=== PATIENT | female | born 1955 | race Caucasian/White ===

== ENCOUNTER → 2017-02-25 | Day surgery (SDC) | payer MEDICAID ==
[~2017-02-25] MED LIST: Lactated Ringers 1,000 ML IV SCH; Ondansetron 4 MG/2 ML SDV IV ONE; Propofol 200 MG/20 ML SDV IV ONE
[2017-02-25 12:00] VITALS: BP 171/92
--- NOTE | 2017-02-28 08:13 | OR ---
DATE OF OPERATION: 02/25/2017 PREOPERATIVE DIAGNOSIS: HEMATOCHEZIA. POSTOPERATIVE DIAGNOSIS: HEMATOCHEZIA. SURGEON: Juan Daniel Agarwal MD PROCEDURE: FULL-LENGTH COLONOSCOPY WITH POLYP REMOVAL X4, ANAL BIOPSY X2. 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 COMPLICATIONS: None. SPECIMEN: 1. Tubular adenoma x3. 2. Hyperplastic polyp x1. 3. Anal polyp biopsy x2. FINDINGS: 1. Full-length colonoscopy. 2. Tubular adenoma x3. 3. Small hyperplastic polyp. 4. [id number] sigmoid diverticulosis. 5. Perianal polypoid tissue, recurrent. RECOMMENDATIONS: The patient should have a routine follow up colonoscopy in 3 years. We will send her to Dr. Jimenez for definitive treatment of this rectal mass. INDICATIONS: One year ago, the patient had a palpable anal mass that was looked to be solid tissue. She had surgical removal by Dr. Farfan and was doing fine over the last year. This past month, she started having ongoing issues with blood with her stools. On exam, he could feel this soft tissue mass inside the anus. Dr. Farfan recommended a followup colonoscopy. DESCRIPTION OF PROCEDURE: The patient was prepped and draped, placed in the left lateral decubitus position. A lubricated Olympus colonoscope was inserted and easily advanced to the cecum. Direct visualization of the ileocecal valve was accomplished. Bowel prep was excellent. Upon withdrawal of the scope in the mid ascending colon, the patient had 2 stalk tubular adenoma. It was easily removed with a snare and suctioned into polyp trap #1 without complication. The rest of the ascending and transverse colon appeared benign. Descending area was unremarkable. In the sigmoid, the patient had a few scattered diverticula, but very minimal in severity. No associated inflammatory change. There were no signs of any vascular abnormalities, bleeding sites, or colitis. There was one small flat hyperplastic appearing polyp in the distal sigmoid which was removed with a cold forceps biopsy x2 in its entirety. In the rectosigmoid junction, the patient had a fourth polyp. Again, a tubular adenoma less than 0.5 cm removed with a snare and suctioned into polyp trap #2 without complication. The rectal vault itself appeared benign. On retroflexion, the patient again has a lot of perianal hemorrhoidal tissue. She has again what appears to be a polypoid soft tissue mass in this area. We were able to biopsy x2. There was significant bleeding from the site which resolved on its own. Air was then suctioned. Scope was removed without complication. KEVIN/TEODORO /[id number]
== END ==
LOC: CC.SDS 09:31
PROVIDERS: ATTEND Family Medicine
DX: D12.2 Benign neoplasm of ascending colon (principal); D12.5 Benign neoplasm of sigmoid colon; D12.7 Benign neoplasm of rectosigmoid junction; K62.1 Rectal polyp; K57.30 Diverticulosis of large intestine without perforation or abscess without bleeding; J44.9 Chronic obstructive pulmonary disease, unspecified; E78.5 Hyperlipidemia, unspecified; E04.1 Nontoxic single thyroid nodule; E55.9 Vitamin D deficiency, unspecified; Z79.899 Other long term (current) drug therapy; Z88.1 Allergy status to other antibiotic agents; Z98.890 Other specified postprocedural states; Z87.891 Personal history of nicotine dependence
CPT/HCPCS: 45380; 45385; J2405; J2704; J7120

== ENCOUNTER 2018-02-12 08:46 | Emergency (ER) | payer MEDICAID ==
[2018-02-12] MEDS ORDERED: traMADol 50 MG Tab PO ONE (08:47)
[2018-02-12 09:13] VITALS: BP 141/92
[2018-02-12] MEDS ORDERED: Take Home: traMADol 50 MG, 4 Tab Pack PO ONE (09:44)
--- NOTE | 2018-02-12 09:44 | EDM.PDOC ---
ED HPI GENERAL MEDICAL PROBLEM - General Chief Complaint: Back Pain or Injury Stated Complaint: "HAVING RIGHT LOWER BACK PAIN" Time Seen by Provider: 02/12/18 09:30 - History of Present Illness INITIAL COMMENTS - FREE TEXT/NARRATIVE: Isabel is a 62 year old female who presents to the ED with c/o right sided low back pain with intermittent radiation to her right thigh. She reports that her low back was bothering her yesterday, but upon awakening this morning her pain was so bad she "could hardly walk." She reports she did put some BIofreeze on the affected area and that has helped quite a bit. She has not taken anything this morning for the pain. Has not tried ice/heat. Does report she is on Tramadol for her chronic pain. Does admit she has been taking 2 instead of 1 as prescribed, so she only has 2 pills left. She reports she is due for a refill on the of this month. 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 She otherwise denies any injuries to affected area. At present she denies any numbness/tingling. No loss of bowel or bladder. She has no other complaints. 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) (Biofreeze) buttock Pain Score (Numeric/FACES): 9 - Related Data Allergies Allergy/AdvReac Type Severity Reaction Status Date / Time azithromycin [From Zithromax] Allergy Rash Verified 02/12/18 09:23 Home Meds: Home Meds ALPRAZolam [Xanax] 1 mg PO TID PRN 07/26/13 [History] Albuterol [Ventolin HFA] 2 puff INH Q4H PRN 07/26/13 [History] Budesonide/Formoterol [Symbicort 160-4.5 MCG] 2 puff IH BID 07/26/13 [History] Ipratropium/Albuterol Sulfate [Duoneb 0.5 MG-3 MG/3 ML] 3 ml INH QID PRN [History] Montelukast [Singulair] 10 mg PO DAILY 07/26/13 [History] Fluticasone Propionate [Flonase] 1 spray NASBOTH DAILY 10/28/13 [History] Roflumilast [Daliresp] 500 mcg PO DAILY #30 tablet 12/01/13 [Rx] Ibuprofen 200 mg PO Q4H PRN 10/06/15 [History] traMADol HCl [Tramadol HCl] 50 mg PO TID PRN 02/23/17 [History] Past Medical History Respiratory History: Reports: Asthma, COPD Musculoskeletal History: Reports: Osteoporosis - Past Surgical History Other Musculoskeletal Surgeries/Procedures:: surgery on left foot Social & Family History - Tobacco Use Second Hand Smoke Exposure: No - Living Situation & Occupation Living situation: Reports: , Other Occupation: Employed ED ROS GENERAL - Review of Systems Review Of Systems: ROS reveals no pertinent complaints other than HPI. ED EXAM,LOWER BACK PAIN/INJURY - Physical Exam Exam: See Below Exam Limited By: No Limitations General Appearance: Alert, WD/WN, No Apparent Distress Back Exam: Full Range of Motion, Other (tenderness to right SI joint) Neurological: Alert, Normal Mood/Affect, Normal Dorsiflexion, CN II-XII Intact, Normal Plantar Flexion, Normal Gait (limp on R), Normal Reflexes, No Motor/ Sensory Deficits, Oriented x 3. No: Straight Leg Raise (L), Straight Leg Raise (R) Psychiatric: Normal Affect, Normal Mood Course - Vital Signs Last Recorded V/S: Last Vital Signs Temp 97.8 F 02/12/18 09:12 Pulse 82 02/12/18 09:12 Resp 20 02/12/18 09:12 BP 141/92 H 02/12/18 09:12 Pulse Ox 99 02/12/18 09:12 - Orders/Labs/Meds Orders: Active Orders 24 hr Category Date Time Status Lumbar Spine 2 or 3V [CR] Stat Exams 02/12/18 09:08 Taken Pelvis 1V or 2V [CR] Stat Exams 02/12/18 09:08 Taken Labs: Laboratory Tests 02/12/18 Range/Units 09:11 Urine Color Yellow (YELLOW) Urine Appearance Clear (CLEAR) Urine pH 5.0 (4.5-8.0) Ur Specific Odonnell >= 1.030 H (1.003-1.020) Urine Protein Negative (NEGATIVE) mg/dL Urine Glucose (UA) Negative (NEGATIVE) mg/dL Urine Ketones Negative (NEGATIVE) mg/dL Urine Occult Blood Moderate H (NEGATIVE) Urine Nitrite Negative (NEGATIVE) Urine Bilirubin Negative (NEGATIVE) Urine Urobilinogen 0.2 (0.2-1.0) EU/dL Ur Leukocyte Esterase Negative (NEGATIVE) Urine RBC 5-10 H (0-5) /HPF Urine WBC 0-5 (0-5) /HPF Ur Squamous Epith Cells Occasional H (NOT SEEN) /HPF Urine Bacteria Rare (NOT SEEN) /HPF Urine Mucus Occasional H (NOT SEEN) /HPF Meds: Medications Discontinued Medications Generic Name Dose Route Start Last Admin Trade Name Freq PRN Reason Stop Dose Admin Tramadol HCl 1 packet 02/12/18 09:44 Take Home: Tramadol 50 Mg, 4 Tab Pack PO 02/12/18 09:45 ONETIME ONE - Re-Assessments/Exams Free Text/Narrative Re-Assessment/Exam: Reviewed Xray with patient. No fracture or dislocation. Degenerative changes of hip joints bilaterally, moderate marginal sclerosis. Moderate artherosclerosis abdominal aorta and pelvic arteries. Mild degenerative spondylosis of multiple levels. Departure - Departure Time of Disposition: 09:44 Disposition: Home, Self-Care 01 Condition: Good Clinical Impression: Sacroiliitis, Spondylosis of lumbar spine, Atherosclerosis of abdominal aorta Low back pain Qualifiers: Chronicity: acute Back pain laterality: right Sciatica presence: with sciatica Sciatica laterality: sciatica of right side Qualified Code(s): M54.41 - Lumbago with sciatica, right side Osteoarthritis, hip, bilateral Qualifiers: Osteoarthritis type: unspecified Qualified Code(s): M16.0 - Bilateral primary osteoarthritis of hip - Discharge Information *PRESCRIPTION DRUG MONITORING PROGRAM REVIEWED*: Not Applicable *COPY OF PRESCRIPTION DRUG MONITORING REPORT IN PATIENT MAGY: Not Applicable Instructions: Sacroiliac Joint Dysfunction, Back Pain, Adult, [id number] Referrals: Juan Daniel Agarwal MD [Primary Care Provider] - Forms: ED Department Discharge Additional Instructions: Tramadol as previously prescribed by PCP. Will give patient #4 take home tabs. Tylenol 650 mg and ibuprofen 800 mg every 6 hours for the next few days Ice/heat to affected area as needed for comfort Biofreeze as needed Follow up with PCP for recheck of microscopic hematuria Follow up with PCP if symptoms worsen or do not improve - My Orders Last 24 Hours: My Active Orders 02/12/18 09:08 Lumbar Spine 2 or 3V [CR] Stat Pelvis 1V or 2V [CR] Stat - Assessment/Plan Last 24 Hours: My Active Orders 02/12/18 09:08 Lumbar Spine 2 or 3V [CR] Stat Pelvis 1V or 2V [CR] Stat
== END 2018-02-12 09:55 | disposition home or self-care (01) ==
LOC: CC.ED 08:46
DX: M16.0 Bilateral primary osteoarthritis of hip (principal); M47.816 Spondylosis without myelopathy or radiculopathy, lumbar region; M54.41 Lumbago with sciatica, right side; M46.1 Sacroiliitis, not elsewhere classified; I70.0 Atherosclerosis of aorta; J44.9 Chronic obstructive pulmonary disease, unspecified; Z88.1 Allergy status to other antibiotic agents; Z79.899 Other long term (current) drug therapy
CPT/HCPCS: 72100; 72170; 81001; 99283; A9270

== ENCOUNTER 2019-05-04 09:48 | Emergency (ER) | payer OTHER, MEDICAID ==
[2019-05-04 09:55] VITALS: BP 150/94; PULSE 89
[2019-05-04] MEDS: Diphtheria,Pertussis(Acell),Tetanus Vaccine 0.5 ML Syringe IM ONE (10:06)
--- NOTE | 2019-05-04 10:56 | EDM.PDOC ---
ED HPI GENERAL MEDICAL PROBLEM - General Chief Complaint: Laceration Stated Complaint: CUT HAND AT WORK Time Seen by Provider: 05/04/19 10:08 Source of Information: Reports: Patient History Limitations: Reports: No Limitations - History of Present Illness INITIAL COMMENTS - FREE TEXT/NARRATIVE: Isabel is a 63 yo female who presents to the ED via private vehicle with concerns of a cut to her left hand/wrist. 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 States it was bleeding and has been holding pressure. Able to move all fingers and unsure how deep it is. Tdap status unknown. l wrist lac Pain Score (Numeric/FACES): 8 - Related Data Allergies Allergy/AdvReac Type Severity Reaction Status Date / Time azithromycin [From Zithromax] Allergy Rash Verified 05/04/19 09:55 Home Meds: Home Meds ALPRAZolam [Xanax] 1 mg PO TID PRN 07/26/13 [History] Albuterol [Ventolin HFA] 2 puff INH Q4H PRN 07/26/13 [History] Budesonide/Formoterol [Symbicort 160-4.5 MCG] 2 puff IH BID 07/26/13 [History] Ipratropium/Albuterol Sulfate [Duoneb 0.5 MG-3 MG/3 ML] 3 ml INH QID PRN [History] Montelukast [Singulair] 10 mg PO DAILY 07/26/13 [History] Fluticasone Propionate [Flonase] 1 spray NASBOTH DAILY 10/28/13 [History] Ibuprofen 200 mg PO Q4H PRN 10/06/15 [History] traMADol HCl [Tramadol HCl] 50 mg PO TID PRN 02/23/17 [History] Past Medical History Respiratory History: Reports: Asthma, COPD Musculoskeletal History: Reports: Osteoporosis - Past Surgical History Other Musculoskeletal Surgeries/Procedures:: surgery on left foot Social & Family History - Family History Family Medical History: Noncontributory - Tobacco Use Smoking Status *Q: Never Smoker Second Hand Smoke Exposure: No - Caffeine Use Caffeine Use: Reports: None - Recreational Drug Use Recreational Drug Use: No - Living Situation & Occupation Living situation: Reports: , Other Occupation: Employed ED ROS GENERAL - Review of Systems Review Of Systems: Comprehensive ROS is negative, except as noted in HPI. ED EXAM, SKIN/RASH Exam: See Below Exam Limited By: No Limitations General Appearance: Alert, No Apparent Distress, Anxious Extremities: Normal Range of Motion, Other (strength and ROM appropriate in wrist down to distal digits. No tendon involvement. ) Neurological: No Motor/Sensory Deficits Psychiatric: Normal Affect, Anxious Skin: Warm, Normal Color, Other (very mild bleeding noted. 5cm superficial, clean laceration to left hand/wrist. ) ED SKIN PROCEDURES - Laceration/Wound Repair Left Anterior Hand Appearance: Superficial, Linear, Clean Distal NVT: Neuro & Vascular Intact, No Tendon Injury Skin Prep: Chlorhexidine (Hibiciens) Exploration/Debridement/Repair: Wound Explored, In a Bloodless Field, Explored to Base Closed with: Dermabond Lac/Wound length In cm: 5 Sterile Dressing Applied: Nurse Tetanus Status Addressed: Yes Complications: No Course - Vital Signs Last Recorded V/S: Last Vital Signs Temp 96.9 F 05/04/19 09:52 Pulse 89 05/04/19 09:52 Resp 14 05/04/19 09:52 BP 150/94 H 05/04/19 09:52 Pulse Ox 98 05/04/19 09:52 - Orders/Labs/Meds Orders: Active Orders 24 hr Category Date Time Status Vaccines to be Administered [RC] PER UNIT ROUTINE Care 05/04/19 09:57 Active Meds: Medications Discontinued Medications Generic Name Dose Route Start Last Admin Trade Name Freq PRN Reason Stop Dose Admin Diphtheria/Tetanus/Acell Pertussis 0.5 ml 05/04/19 09:57 05/04/19 10:06 Adacel IM 05/04/19 09:58 0.5 ml .ONCE ONE Administration Departure - Departure Time of Disposition: 10:55 Disposition: Home, Self-Care 01 Clinical Impression: Laceration of hand Qualifiers: Encounter type: initial encounter Foreign body presence: without foreign body Laterality: left Qualified Code(s): S61.412A - Laceration without foreign body of left hand, initial encounter - Discharge Information Instructions: Stitches, [place], or Adhesive Wound Closure, [id number] Additional Instructions: 1) Keep laceration clean and dry for 48 hours. 2) May wear wrist splint X 1 week to refrain from reopening laceration 3) Wound was closed with Dermabond adhesive today 4) Discussed watching for signs of infection 5) If any concerns at all, recommend reevaluation 6) Recommend taking Tylenol and/or ibuprofen for discomfort. Sepsis Event Note - Evaluation Sepsis Screening Result: No Definite Risk - Focused Exam Vital Signs: Vital Signs Temp Pulse Resp BP Pulse Ox 05/04/19 09:52 96.9 F 89 14 150/94 H 98 Date Exam was Performed: 05/04/19 Time Exam was Performed: 10:51 - Problem List & Annotations (1) Laceration of hand SNOMED Code(s): 040179031 Code(s): S61.419A - LACERATION WITHOUT FOREIGN BODY OF UNSP HAND, INIT ENCNTR Status: Acute Qualifiers: Encounter type: initial encounter Foreign body presence: without foreign body Laterality: left Qualified Code(s): S61.412A - Laceration without foreign body of left hand, initial encounter - My Orders Last 24 Hours: My Active Orders 05/04/19 09:57 Vaccines to be Administered [RC] PER UNIT ROUTINE - Assessment/Plan Last 24 Hours: My Active Orders 05/04/19 09:57 Vaccines to be Administered [RC] PER UNIT ROUTINE Plan: Wound was explored to base and is superficial. Elected to close via dermabond with excellent reapproximation of wound edges. Wrist splint applied to prevent splitting of wound open. Will discharge home. May use Tylenol and ibuprofen for discomfort. Signs and symptoms of infection discussed and advised monitoring for. Tdap updated today.
== END 2019-05-04 11:26 | disposition home or self-care (01) ==
LOC: CC.ED 09:48
DX: S61.412A Laceration without foreign body of left hand, initial encounter (principal); J44.9 Chronic obstructive pulmonary disease, unspecified; Z88.1 Allergy status to other antibiotic agents; Z23 Encounter for immunization; Z79.899 Other long term (current) drug therapy; Z79.51 Long term (current) use of inhaled steroids; W26.0XXA Contact with knife, initial encounter; Y93.89 Activity, other specified; Y92.89 Other specified places as the place of occurrence of the external cause; Y99.0 Civilian activity done for income or pay
CPT/HCPCS: 12002; 29125; 90471; 90715; 99282-25

== ENCOUNTER 2021-01-07 19:05 | Emergency (ER) | payer MEDICAID ==
[2021-01-07 19:24] VITALS: BP 142/92; PULSE 91
--- NOTE | 2021-01-07 20:03 | EDM.PDOC ---
ED HPI GENERAL MEDICAL PROBLEM - General Chief Complaint: General Stated Complaint: swollen leg Time Seen by Provider: 01/07/21 19:35 Source of Information: Reports: Patient History Limitations: Reports: No Limitations - History of Present Illness INITIAL COMMENTS - FREE TEXT/NARRATIVE: Isabel is a 65 yo female who presents to the ED with concerns of swelling and redness of the left lower extremity. States it initially started a couple weeks ago. Didn't really think much of it as her left leg does typically swell by the end of the night d/t being on her feet all the time. States the redness has been ongoing for a few days now. States it has been itching a lot and she has been scratching the skin open. Tonight it has been more warm. Denies any fevers. Left Lower Leg Pain Score (Numeric/FACES): 8 - Related Data Allergies Allergy/AdvReac Type Severity Reaction Status Date / Time azithromycin [From Zithromax] Allergy Rash Verified 01/07/21 19:26 Home Meds: Home Meds ALPRAZolam [Xanax] 1 mg PO TID PRN 07/26/13 [History] Albuterol [Ventolin HFA] 2 puff INH Q4H PRN 07/26/13 [History] Budesonide/Formoterol [Symbicort 160-4.5 MCG] 2 puff IH BID 07/26/13 [History] Ipratropium/Albuterol Sulfate [Duoneb 0.5 MG-3 MG/3 ML] 3 ml INH QID PRN 07/26/13 [History] Montelukast [Singulair] 10 mg PO DAILY 07/26/13 [History] Fluticasone Propionate [Flonase] 1 spray NASBOTH DAILY 10/28/13 [History] Ibuprofen 200 mg PO Q4H PRN 10/06/15 [History] traMADol HCl [Tramadol HCl] 50 mg PO TID PRN 02/23/17 [History] Past Medical History Respiratory History: Reports: Asthma, COPD Musculoskeletal History: Reports: Osteoporosis - Past Surgical History Other Musculoskeletal Surgeries/Procedures:: surgery on left foot Social & Family History - Family History Family Medical History: No Pertinent Family History - Tobacco Use Tobacco Use Status *Q: Former Tobacco User Used Tobacco, but Quit: Yes Month/Year Tobacco Last Used: 2013 - Caffeine Use Caffeine Use: Reports: Coffee - Recreational Drug Use Recreational Drug Use: No - Living Situation & Occupation Living situation: Reports: , Other Occupation: Employed ED ROS GENERAL - Review of Systems Review Of Systems: Comprehensive ROS is negative, except as noted in HPI. Respiratory: Reports: No Symptoms. Denies: Shortness of Breath Cardiovascular: Reports: No Symptoms Skin: Reports: Pruritis, Erythema, Wound, Change in Color ED EXAM, GENERAL - Physical Exam Exam: See Below Exam Limited By: No Limitations General Appearance: Alert, No Apparent Distress Peripheral Pulses: 2+: Dorsalis Pedis (L), Dorsalis Pedis (R) Extremities: Pedal Edema, Increased Warmth, Redness. No: Marian's Sign Neurological: Alert, Oriented, No Motor/Sensory Deficits Skin Exam: Erythema (extending up to the knee), Increased Warmth Course - Vital Signs Last Recorded V/S: Last Vital Signs Temp 98.3 F 01/07/21 19:31 Pulse 91 01/07/21 19:31 Resp 20 01/07/21 19:31 BP 142/92 H 01/07/21 19:31 Pulse Ox 98 01/07/21 19:31 - Orders/Labs/Meds Labs: Laboratory Tests 01/07/21 01/07/21 Range/Units 19:50 19:50 WBC 7.8 (4.0-11.0) 10^3/uL RBC 3.98 L (4.00-5.50) x10^6/uL Hgb 12.2 (12.0-16.0) g/dL Hct 37.0 (37.0-47.0) % MCV 93.0 (83.0-97.0) fL MCH 30.7 (27.0-32.0) pg MCHC 33.0 (32.0-36.0) g/dL RDW Coeff of [place] 12.3 (11.0-15.0) % Plt Count 323 (150-400) 10^3/uL Immature Gran % (Auto) 0.1 (0.0-4.9) % Neut % (Auto) 56.3 (41-71) % Lymph % (Auto) 27.5 (24-44) % [place] % (Auto) 8.7 (0-10) % Eos % (Auto) 6.5 H (0-6) % Baso % (Auto) 0.9 (0-1) % Neut # (Auto) 4.38 (1.80-8.00) x10^3/uL Lymph # (Auto) 2.14 (0.60-5.00) 10^3/uL [place] # (Auto) 0.68 (0.00-1.50) 10^3/uL Eos # (Auto) 0.51 (0.00-1.50) 10^3/uL Baso # (Auto) 0.07 (0.00-0.50) 10^3/uL Immature Gran # (Auto) 0.01 (0.00-0.49) 10^3/uL Sodium 141 (136-145) mEq/L Potassium 4.0 (3.5-5.0) mEq/L Chloride 102 (98-106) mEq/L Carbon Dioxide 27 (21-32) mmol/L BUN 22 H (7-18) mg/dL Creatinine 0.6 (0.6-1.0) mg/dL Est Cr Clr Drug Dosing 82.87 mL/min Estimated GFR (MDRD) > 60 (>=60) mL/min Glucose 103 H (75-99) mg/dL Calcium 9.1 (8.4-10.1) mg/dL Total Bilirubin 0.2 (0.0-1.0) mg/dL AST 18 (15-37) U/L ALT 25 (12-78) U/L Alkaline Phosphatase 109 (46-116) U/L C-Reactive Protein 1.2 H (0.2-0.8) mg/dL Total Protein 7.4 (6.4-8.2) g/dL Albumin 3.2 L (3.4-5.0) g/dL Meds: Medications Discontinued Medications Generic Name Dose Route Start Last Admin Trade Name Freq PRN Reason Stop Dose Admin Ceftriaxone Sodium 1 gm 01/07/21 20:05 Ceftriaxone 1 Gm Vial IM 01/07/21 20:06 ONETIME ONE Clindamycin HCl 1 packet 01/07/21 20:08 Take Home: Clindamycin Hcl 150 Mg Cap, 6 Cap Pack PO 01/07/21 20:09 ONETIME ONE Departure - Departure Time of Disposition: 20:13 Disposition: Home, Self-Care 01 Clinical Impression: Cellulitis of leg, left - Discharge Information *PRESCRIPTION DRUG MONITORING PROGRAM REVIEWED*: No *COPY OF PRESCRIPTION DRUG MONITORING REPORT IN PATIENT MAGY: No Instructions: Cellulitis, Adult, Cellulitis, Adult, [id number] Referrals: Juan Daniel Agarwal MD [Primary Care Provider] - Forms: ED Department Discharge Additional Instructions: 1) Clindamycin 300mg four times a day for 10 days 2) Rocephin, antibiotic injection, given tonight in the ER 3) Labs were overall stable 4) Recommend no work for next 2 days 5) Advise keeping leg elevated 6) If redness, warmth worsens, need to return for reevaluation. 7) May use Benadryl (diphenhydramine) 25-50mg every 4-6 hours as needed for itching, may cause drowsiness. 8) Recommend following up with [facility] tomorrow in [place]. Call in am for appointment. Sepsis Event Note (ED) - Evaluation Sepsis Screening Result: No Definite Risk - Focused Exam Vital Signs: Vital Signs Temp Pulse Resp BP Pulse Ox 01/07/21 19:31 98.3 F 91 20 142/92 H 98 01/07/21 19:17 98.3 F 91 20 142/92 H 98 - Problem List & Annotations (1) Cellulitis of leg, left SNOMED Code(s): 217235044 Code(s): L03.116 - CELLULITIS OF LEFT LOWER LIMB Status: Acute Current Visit: Yes - Assessment/Plan Plan: Laboratory work is stable tonight. Will treat as outpatient as patient does not want to be hospitalized. Discussed closely monitoring. Line drawn at top of re dness. Discussed if continues to spread to return for reevaluation. Please see additional instructions.
[2021-01-07 20:05] LABS: CHLORIDE,CL 102 mEq/L (98-106); SODIUM,NA 141 mEq/L (136-145)
[2021-01-07] MEDS ORDERED: cefTRIAXone 1 GM Vial IM ONE (20:05)
[2021-01-07] MEDS ORDERED: Take Home: Clindamycin HCl 150 MG Cap, 6 Cap Pack PO ONE (20:08)
== END 2021-01-07 20:44 | disposition home or self-care (01) ==
LOC: CC.ED 19:05
DX: L03.116 Cellulitis of left lower limb (principal); J44.9 Chronic obstructive pulmonary disease, unspecified; Z79.899 Other long term (current) drug therapy; Z87.891 Personal history of nicotine dependence; Z88.1 Allergy status to other antibiotic agents
CPT/HCPCS: 36415; 80053; 85025; 86140; 96372; 99284; A9270-GY; J0696

== ENCOUNTER 2023-09-28 14:51 | Inpatient (IN) | payer MEDICARE, MEDICAID ==
[2023-09-28] MEDS: Acetaminophen/oxyCODONE 325-5 MG Tab PO ONE (19:14)
[2023-09-28] MEDS ORDERED: Albuterol 6.7 GM Inhaler INH PRN (19:22)
[2023-09-28] MEDS ORDERED: Montelukast 10 MG Tab PO PRN (19:22)
[2023-09-28] MEDS: Formoterol/Mometasone 200-5 MCG 8.8 GM Inhaler IH SCH (20:31)
[2023-09-28] MEDS: Fluticasone NASAL Spray 16 GM Bottle NASBOTH SCH (20:49)
[2023-09-29] MEDS: Acetaminophen/oxyCODONE 325-5 MG Tab PO PRN (01:12)
[2023-09-29] MEDS: Potassium Chloride 20 MEQ Tab.ER PO SCH (07:27)
[2023-09-29] MEDS: Aspirin 81 MG Tab.EC PO SCH (07:28)
[2023-09-29] MEDS: Cyclobenzaprine 10 MG Tab PO PRN (07:28)
[2023-09-29] MEDS: Loratadine 10 MG Tab PO SCH (07:28)
[2023-09-29] MEDS: Ibuprofen 200 MG Tab PO PRN (19:42)
[2023-09-30] MEDS ORDERED: Acetaminophen/oxyCODONE 325-5 MG Tab PO PRN (10:28)
[2023-09-30] MEDS: Acetaminophen/oxyCODONE 325-5 MG Tab PO PRN (15:47)
[2023-09-30] MEDS: Docusate Sodium 100 MG Cap PO PRN (16:06)
[2023-09-30] MEDS: Fluticasone NASAL Spray 16 GM Bottle NASBOTH PRN (19:50)
[2023-10-01] MEDS: ALPRAZolam 0.25 MG Tab PO PRN (19:35)
[2023-10-02 07:44] LABS: APPEARANCE,URINE CLEAR (CLEAR); BILIRUBIN,URINE NEGATIVE (NEGATIVE); COLOR,URINE YELLOW (YELLOW); GLUCOSE,URINE NEGATIVE (NEGATIVE); KETONES,URINE NEGATIVE (NEGATIVE); LEUKOCYTE ESTERASE,URINE NEGATIVE (NEGATIVE); NITRITE,URINE NEGATIVE (NEGATIVE); OCCULT BLOOD,URINE LARGE (NEGATIVE); PH,URINE 6.5 (4.5-8.0); PROTEIN,URINE NEGATIVE (NEGATIVE); UROBILINOGEN,URINE 0.2 EU/dL (0.2-1.0)
[2023-10-02 07:48] LABS: WBC,URINE NOT SEEN /HPF (0-5)
[2023-10-02 07:49] LABS: BACTERIA,URINE RARE /HPF (NOT SEEN); EPITHELIAL CELLS,URINE OCCASIONAL /HPF (NOT SEEN); MUCUS,URINE OCCASIONAL /HPF (NOT SEEN)
[2023-10-03] MEDS: Albuterol/Ipratropium 3.0-0.5 MG/3 ML Neb Soln INH PRN (11:39)
[2023-10-05 09:48] VITALS: BP 95/66; PULSE 84
== END 2023-10-05 15:40 | disposition home or self-care (01) | DRG 561 ==
LOC: CC.MS 16:51 → UNDOADMIN 17:00
PROVIDERS: ADMIT Physician Assistant Medical; ATTEND Physician Assistant Medical
DX: Z47.1 Aftercare following joint replacement surgery (principal); Z96.652 Presence of left artificial knee joint; Z66 Do not resuscitate; J44.9 Chronic obstructive pulmonary disease, unspecified; M81.0 Age-related osteoporosis without current pathological fracture; F32.A Depression, unspecified; Z88.0 Allergy status to penicillin; Z79.51 Long term (current) use of inhaled steroids; Z79.899 Other long term (current) drug therapy; Z98.890 Other specified postprocedural states; Z87.891 Personal history of nicotine dependence; R31.9 Hematuria, unspecified
CPT/HCPCS: 74176; 81001; 94640; 97110-GP; 97161-GP; 97530-GP; A9270-GY; J7620-GY

== ENCOUNTER 2024-10-03 13:49 | Inpatient (IN) | payer MEDICARE, MEDICAID ==
[2024-10-03] MEDS ORDERED: Sodium Chloride 0.9% 10 ML Syringe FLUSH PRN (14:09)
[2024-10-03] MEDS: HYDROmorphone 0.5 MG/0.5 ML Syringe IVPUSH STA (14:24)
[2024-10-03] MEDS: Sodium Chloride 0.9% 1,000 ML IV ONE (14:27)
[2024-10-03 14:29] LABS: BASOPHILS ABSOLUTE AUTO 0.04 10^3/uL (0.00-0.50); BASOPHILS PERCENT AUTO 0.3 % (0-1); EOSINOPHILS ABSOLUTE AUTO 0.01 10^3/uL (0.00-1.50); EOSINOPHILS PERCENT AUTO 0.1 % (0-6); HEMATOCRIT 41.1 % (37.0-47.0); HEMOGLOBIN 13.9 g/dL (12.0-16.0); IMMATURE GRAN ABSOLUTE AUTO 0.02 10^3/uL (0.00-0.49); IMMATURE GRAN PERCENT AUTO 0.2 % (0.0-4.9); LYMPHOCYTES ABSOLUTE AUTO 1.02 10^3/uL (0.60-5.00); LYMPHOCYTES PERCENT AUTO 8.6 % (24-44); MEAN CORPUSCULAR HEMOGLOBIN 31.1 pg (27.0-32.0); MEAN CORPUSCULAR HGB CONC 33.8 g/dL (32.0-36.0); MEAN CORPUSCULAR VOLUME 91.9 fL (83.0-97.0); MONOCYTES ABSOLUTE AUTO 1.43 10^3/uL (0.00-1.50); MONOCYTES PERCENT AUTO 12.1 % (0-10); NEUTROPHILS ABSOLUTE AUTO 9.32 x10^3/uL (1.80-8.00); NEUTROPHILS PERCENT AUTO 78.7 % (41-71); PLATELET COUNT,PLT 312 10^3/uL (150-400); RED BLOOD CELL COUNT 4.47 x10^6/uL (4.00-5.50); WHITE BLOOD CELL COUNT,WBC 11.8 10^3/uL (4.0-11.0)
[2024-10-03 14:29] LABS: APPEARANCE,URINE SLIGHTLY CLOUDY (CLEAR); COLOR,URINE DARK YELLOW (YELLOW); GLUCOSE,URINE NEGATIVE (NEGATIVE); KETONES,URINE 40 mg/dL (NEGATIVE); LEUKOCYTE ESTERASE,URINE NEGATIVE (NEGATIVE); NITRITE,URINE POSITIVE (NEGATIVE); OCCULT BLOOD,URINE LARGE (NEGATIVE); PH,URINE 5.5 (4.5-8.0); PROTEIN,URINE 100 mg/dL (NEGATIVE)
[2024-10-03 14:48] LABS: ALBUMIN 2.7 g/dL (3.4-5.0); BILIRUBIN TOTAL 1.1 mg/dL (0.0-1.0); CALCIUM 10.1 mg/dL (8.4-10.1); CREATININE 0.8 mg/dL (0.6-1.0); EST CRCL DRUG DOSING (CG) 56.19 mL/min; POTASSIUM,K 3.9 mEq/L (3.5-5.0); PROTEIN TOTAL,TP 8.2 g/dL (6.4-8.2)
[2024-10-03 14:52] LABS: BILIRUBIN,URINE MODERATE (NEGATIVE)
[2024-10-03 14:53] LABS: BACTERIA,URINE OCCASIONAL /HPF (NOT SEEN); EPITHELIAL CELLS,URINE OCCASIONAL /HPF (NOT SEEN); GRANULAR CASTS,URINE FEW /LPF (NOT SEEN); HYALINE CASTS,URINE FEW /LPF (NOT SEEN); RBC,URINE 0-5 /HPF (0-5); WBC,URINE 0-5 /HPF (0-5)
[2024-10-03 15:09] LABS: C-REACTIVE PROTEIN 38.86 mg/dL (<=0.50)
[2024-10-03] MEDS: HYDROmorphone 0.5 MG/0.5 ML Syringe ONE (15:24)
[2024-10-03] MEDS: cefTRIAXone 2 GM Vial IVPUSH ONE (15:27)
[2024-10-03] MEDS: Iopamidol 755 Mg/ML 100 ML Bottle IVPUSH ONE (16:50)
[2024-10-03] MEDS: HYDROmorphone 0.5 MG/0.5 ML Syringe IVPUSH ONE (18:29)
[2024-10-03] MEDS ORDERED: Albuterol 6.7 GM Inhaler INH PRN (19:51)
[2024-10-03] MEDS ORDERED: Ondansetron 4 MG/2 ML SDV IV PRN (20:33)
[2024-10-03] MEDS ORDERED: Naloxone 2 MG/2 ML Syringe IVPUSH PRN (20:33)
[2024-10-03] MEDS ORDERED: Acetaminophen 325 MG Tab PO PRN (20:33)
[2024-10-03] MEDS ORDERED: Ondansetron 4 MG Tab.DIS PO PRN (20:33)
[2024-10-03] MEDS: Acetaminophen/HYDROcodone 325-5 MG Tab PO PRN (20:55)
[2024-10-03] MEDS: HYDROmorphone 0.5 MG/0.5 ML Syringe IVPUSH PRN (20:56)
[2024-10-03] MEDS: Rosuvastatin 10 MG Tab PO SCH (20:57)
[2024-10-03] MEDS: Sodium Chloride 0.9% 1,000 ML IV SCH (20:59)
[2024-10-03] MEDS: Formoterol/Mometasone 200-5 MCG 8.8 GM Inhaler INH SCH (21:51)
[2024-10-04] MEDS: Aspirin 81 MG Tab.EC PO SCH (07:44)
[2024-10-04 09:23] LABS: BASOPHILS ABSOLUTE AUTO 0.02 10^3/uL (0.00-0.50); BASOPHILS PERCENT AUTO 0.2 % (0-1); EOSINOPHILS ABSOLUTE AUTO 0.02 10^3/uL (0.00-1.50); EOSINOPHILS PERCENT AUTO 0.2 % (0-6); HEMATOCRIT 35.4 % (37.0-47.0); HEMOGLOBIN 11.8 g/dL (12.0-16.0); IMMATURE GRAN ABSOLUTE AUTO 0.03 10^3/uL (0.00-0.49); IMMATURE GRAN PERCENT AUTO 0.3 % (0.0-4.9); LYMPHOCYTES ABSOLUTE AUTO 0.74 10^3/uL (0.60-5.00); LYMPHOCYTES PERCENT AUTO 7.7 % (24-44); MEAN CORPUSCULAR HEMOGLOBIN 31.3 pg (27.0-32.0); MEAN CORPUSCULAR HGB CONC 33.3 g/dL (32.0-36.0); MEAN CORPUSCULAR VOLUME 93.9 fL (83.0-97.0); MONOCYTES ABSOLUTE AUTO 1.13 10^3/uL (0.00-1.50); MONOCYTES PERCENT AUTO 11.7 % (0-10); NEUTROPHILS ABSOLUTE AUTO 7.72 x10^3/uL (1.80-8.00); NEUTROPHILS PERCENT AUTO 79.9 % (41-71); PLATELET COUNT,PLT 284 10^3/uL (150-400); RED BLOOD CELL COUNT 3.77 x10^6/uL (4.00-5.50); WHITE BLOOD CELL COUNT,WBC 9.7 10^3/uL (4.0-11.0)
[2024-10-04 09:42] LABS: BILIRUBIN TOTAL 0.5 mg/dL (0.0-1.0); CALCIUM 9.2 mg/dL (8.4-10.1); CREATININE 0.6 mg/dL (0.6-1.0); EST CRCL DRUG DOSING (CG) 77.33 mL/min; POTASSIUM,K 3.3 mEq/L (3.5-5.0); PROTEIN TOTAL,TP 6.8 g/dL (6.4-8.2)
[2024-10-04 09:54] LABS: C-REACTIVE PROTEIN 31.57 mg/dL (<=0.50)
[2024-10-04] MEDS: methylPREDNISolone Sodium Succinate 40 MG/1 ML SDV IVPUSH ONE (12:29)
[2024-10-04] MEDS: Cyclobenzaprine 10 MG Tab PO PRN (12:30)
[2024-10-04] MEDS: Enoxaparin 40 MG/0.4 ML Syringe SUBCUT SCH (12:32)
[2024-10-04] MEDS: Sodium Chloride 1 GM Tab PO ONE (12:56)
[2024-10-04] MEDS: Potassium Chloride 20 MEQ Tab.ER PO ONE (12:56)
[2024-10-04] MEDS: cefTRIAXone 2 GM Vial IVPUSH SCH (15:58)
[2024-10-05 07:37] LABS: BASOPHILS ABSOLUTE AUTO 0.01 10^3/uL (0.00-0.50); BASOPHILS PERCENT AUTO 0.1 % (0-1); HEMATOCRIT 32.1 % (37.0-47.0); HEMOGLOBIN 10.8 g/dL (12.0-16.0); IMMATURE GRAN ABSOLUTE AUTO 0.03 10^3/uL (0.00-0.49); IMMATURE GRAN PERCENT AUTO 0.4 % (0.0-4.9); LYMPHOCYTES ABSOLUTE AUTO 0.53 10^3/uL (0.60-5.00); LYMPHOCYTES PERCENT AUTO 6.7 % (24-44); MEAN CORPUSCULAR HEMOGLOBIN 31.4 pg (27.0-32.0); MEAN CORPUSCULAR HGB CONC 33.6 g/dL (32.0-36.0); MEAN CORPUSCULAR VOLUME 93.3 fL (83.0-97.0); MONOCYTES ABSOLUTE AUTO 0.64 10^3/uL (0.00-1.50); MONOCYTES PERCENT AUTO 8.1 % (0-10); NEUTROPHILS ABSOLUTE AUTO 6.71 x10^3/uL (1.80-8.00); NEUTROPHILS PERCENT AUTO 84.7 % (41-71); PLATELET COUNT,PLT 305 10^3/uL (150-400); RED BLOOD CELL COUNT 3.44 x10^6/uL (4.00-5.50); WHITE BLOOD CELL COUNT,WBC 7.9 10^3/uL (4.0-11.0)
[2024-10-05] MEDS: methylPREDNISolone Sodium Succinate 40 MG/1 ML SDV IVPUSH SCH (08:01)
[2024-10-05 08:05] LABS: ALBUMIN 1.7 g/dL (3.4-5.0); BILIRUBIN TOTAL 0.2 mg/dL (0.0-1.0); C-REACTIVE PROTEIN 22.99 mg/dL (<=0.50); CALCIUM 9.2 mg/dL (8.4-10.1); CREATININE 0.5 mg/dL (0.6-1.0); EST CRCL DRUG DOSING (CG) 92.8 mL/min; POTASSIUM,K 3.7 mEq/L (3.5-5.0); PROTEIN TOTAL,TP 6.4 g/dL (6.4-8.2)
[2024-10-05] MEDS: Lidocaine 4% Patch TOP SCH (09:16)
[2024-10-05 18:09] LABS: APPEARANCE,URINE CLEAR (CLEAR); BILIRUBIN,URINE NEGATIVE (NEGATIVE); COLOR,URINE YELLOW (YELLOW); GLUCOSE,URINE 100 mg/dL (NEGATIVE); KETONES,URINE NEGATIVE (NEGATIVE); LEUKOCYTE ESTERASE,URINE NEGATIVE (NEGATIVE); NITRITE,URINE NEGATIVE (NEGATIVE); OCCULT BLOOD,URINE MODERATE (NEGATIVE); PROTEIN,URINE TRACE mg/dL (NEGATIVE); UROBILINOGEN,URINE 0.2 EU/dL (0.2-1.0)
[2024-10-05 18:14] LABS: BACTERIA,URINE RARE /HPF (NOT SEEN); MUCUS,URINE OCCASIONAL /HPF (NOT SEEN); SQUAMOUS EPITHELIAL CELLS,UR OCCASIONAL /HPF (NOT SEEN); WBC,URINE NOT SEEN /HPF (0-5)
[2024-10-06 07:12] LABS: ALBUMIN 1.7 g/dL (3.4-5.0); BILIRUBIN TOTAL 0.1 mg/dL (0.0-1.0); C-REACTIVE PROTEIN 8.1 mg/dL (<=0.50); CALCIUM 9.4 mg/dL (8.4-10.1); CREATININE 0.6 mg/dL (0.6-1.0); EST CRCL DRUG DOSING (CG) 77.33 mL/min; POTASSIUM,K 4.3 mEq/L (3.5-5.0); PROTEIN TOTAL,TP 6.2 g/dL (6.4-8.2)
[2024-10-06 07:23] LABS: BASOPHILS ABSOLUTE AUTO 0.01 10^3/uL (0.00-0.50); BASOPHILS PERCENT AUTO 0.1 % (0-1); EOSINOPHILS ABSOLUTE AUTO 0.01 10^3/uL (0.00-1.50); EOSINOPHILS PERCENT AUTO 0.1 % (0-6); HEMATOCRIT 32.6 % (37.0-47.0); HEMOGLOBIN 10.8 g/dL (12.0-16.0); IMMATURE GRAN ABSOLUTE AUTO 0.03 10^3/uL (0.00-0.49); IMMATURE GRAN PERCENT AUTO 0.4 % (0.0-4.9); LYMPHOCYTES ABSOLUTE AUTO 0.99 10^3/uL (0.60-5.00); LYMPHOCYTES PERCENT AUTO 11.8 % (24-44); MEAN CORPUSCULAR HEMOGLOBIN 31.2 pg (27.0-32.0); MEAN CORPUSCULAR HGB CONC 33.1 g/dL (32.0-36.0); MEAN CORPUSCULAR VOLUME 94.2 fL (83.0-97.0); MONOCYTES ABSOLUTE AUTO 0.77 10^3/uL (0.00-1.50); MONOCYTES PERCENT AUTO 9.2 % (0-10); NEUTROPHILS ABSOLUTE AUTO 6.56 x10^3/uL (1.80-8.00); NEUTROPHILS PERCENT AUTO 78.4 % (41-71); PLATELET COUNT,PLT 370 10^3/uL (150-400); RED BLOOD CELL COUNT 3.46 x10^6/uL (4.00-5.50); WHITE BLOOD CELL COUNT,WBC 8.4 10^3/uL (4.0-11.0)
[2024-10-06 11:28] VITALS: BP 142/80; PULSE 93
[2024-10-06 22:43] LABS: ANA BY ELISA, IGG W/RFX TO IFA None Detected (None Detected)
== END 2024-10-06 11:55 | disposition home or self-care (01) | DRG 690 ==
LOC: CC.ED 13:49 → CC.MS 19:29 → UNDOADMIN 19:45
PROVIDERS: ADMIT Nurse Practitioner Family; ATTEND Nurse Practitioner Family
DX: M54.6 Pain in thoracic spine (principal); N30.01 Acute cystitis with hematuria; E87.1 Hypo-osmolality and hyponatremia; M19.90 Unspecified osteoarthritis, unspecified site; J44.89 Other specified chronic obstructive pulmonary disease; Z88.1 Allergy status to other antibiotic agents; J44.9 Chronic obstructive pulmonary disease, unspecified; Z79.51 Long term (current) use of inhaled steroids; M81.0 Age-related osteoporosis without current pathological fracture; F32.A Depression, unspecified; I71.40 Abdominal aortic aneurysm, without rupture, unspecified; F41.9 Anxiety disorder, unspecified; I70.0 Atherosclerosis of aorta; R79.82 Elevated C-reactive protein (CRP); Z79.52 Long term (current) use of systemic steroids; Z88.8 Allergy status to other drugs, medicaments and biological substances; Z79.82 Long term (current) use of aspirin; Z98.890 Other specified postprocedural states; Z79.899 Other long term (current) drug therapy
CPT/HCPCS: 36415; 71275; 74175; 74176; 80053; 80061; 81001; 85025; 85651; 86038; 86140; 87086; 96374; 96375; 96376; 97035-GP; 97161-GP; 99223; 99232; 99233; 99239; 99285-25; A9270-GY; J0696; J1650; J2919; J7030; Q9967